=== PATIENT | female | born 1940 | race Caucasian/White ===

== ENCOUNTER 2018-10-28 17:12 | Emergency (ER) | payer OTHER ==
[~2018-10-28] VITALS: Ht 190.5 cm; Wt 63.0 kg
[2018-10-28] MEDS ORDERED: METOPROLOL SUCC25 MG (18:07)
[2018-10-28] MEDS ORDERED: NOVOLOG MI100 UNIT/2 (18:07)
[2018-10-28] MEDS ORDERED: PLAVIX75 MG (18:08)
[2018-10-28] MEDS ORDERED: ASPIR 8181 MG (18:08)
[2018-10-28] MEDS ORDERED: GABAPENTIN300 MG (18:08)
[2018-10-28] MEDS ORDERED: BUSPIRONE HCL15 MG (18:09)
[2018-10-28] MEDS ORDERED: RANITIDINE HCL300 M1 (18:09)
[2018-10-28] MEDS ORDERED: ONDANSETRON ODT4 MG (18:10)
[2018-10-28] MEDS ORDERED: LAXATIVE5 M1 (18:10)
[2018-10-28] MEDS ORDERED: CARAFATE1 GM/10 ML (18:11)
[2018-10-29] MEDS ORDERED: CEFTIN250 MG/5 M PO (06:18)
[2018-10-29] MEDS ORDERED: ZOFRAN ODT4 MG PO (06:18)
[2018-10-29] MEDS ORDERED: PROTONIX40 MG PO (06:18)
[2018-10-29] MEDS ORDERED: PEPCID40 MG PO (06:18)
== END 2018-10-29 06:28 | disposition home or self-care (01) ==
LOC: ER 17:12
DX: R10.13 Epigastric pain (principal); E11.9 Type 2 diabetes mellitus without complications